=== PATIENT | female | born 1940 | race Caucasian/White ===

== ENCOUNTER 2017-01-30 12:45 | Emergency (ER) | payer MEDICARE ==
[~2017-01-30 12:45] MED LIST: ADULT LOW DOSE81 MG PO; CARVEDILOL6.25 MG PO; CHRONULAC20 GM/30 M PO; ENTRESTO PO; ISOSORBIDE MONO60 MG PO; LASIX20 MG PO; LEVOTHYROXINE25 MCG PO; NITROSTAT0.4 MG SL; PROTONIX40 MG PO; XARELTO20 MG PO
[2017-05-11] MEDS ORDERED: TRAMADOL HCL50 MG PO (16:31)
[2017-05-11] MEDS ORDERED: LASIX40 MG PO (16:31)
[2017-05-11] MEDS ORDERED: ISOSORBIDE MONO60 MG PO (16:32)
[2017-05-15] MEDS ORDERED: ALPRAZOLAM0.5 MG PO (10:22)
[2017-05-15] MEDS ORDERED: LOW DOSE ASPIRI81 MG PO (10:23)
[2017-05-15] MEDS ORDERED: TOPROL XL25 MG PO (10:24)
[2017-05-15] MEDS ORDERED: BRILINTA 90 MG90 MG PO (10:25)
[2017-05-15] MEDS ORDERED: TYLENOL 325MG325 MG PO (10:31)
[2017-06-05] MEDS ORDERED: ENTRESTO PO (21:33)
[2017-06-12] MEDS ORDERED: ALDACTONE25 MG PO (16:09)
[2017-06-12] MEDS ORDERED: FERROUS SULFAT325 M2 PO (16:11)
[2017-06-12] MEDS ORDERED: LEVOTHYROXINE50 MCG PO (16:12)
[2017-06-12] MEDS ORDERED: IMDUR ER TAB 6060 MG PO (16:13)
[2017-07-03] MEDS ORDERED: NEURONTIN 100100 MG PO (03:02)
== END 2017-01-30 15:41 | disposition home or self-care (01) ==
LOC: ER1 12:45
DX: I50.9 Heart failure, unspecified (principal); Z91.14 Patient's other noncompliance with medication regimen
CPT/HCPCS: 99283

== ENCOUNTER 2017-02-01 22:05 | Inpatient (IN) | payer MEDICARE ==
[~2017-02-01] VITALS: Ht 157.5 cm; Wt 79.9 kg
[2017-02-02 01:38] LABS: HEMOGLOBIN 10.9 gm/dl (12.3-15.3); RED BLOOD COUNT 4.26 M/UL (4.00-5.10); WHITE BLOOD COUNT 6.7 K/UL (4.5-11.0)
[2017-02-03 04:19] LABS: HEMOGLOBIN 10.6 gm/dl (12.3-15.3); RED BLOOD COUNT 4.02 M/UL (4.00-5.10); WHITE BLOOD COUNT 6.5 K/UL (4.5-11.0)
[2017-02-04 05:33] LABS: HEMOGLOBIN 10.3 gm/dl (12.3-15.3); RED BLOOD COUNT 4.05 M/UL (4.00-5.10); WHITE BLOOD COUNT 7.4 K/UL (4.5-11.0)
[2017-02-06 04:16] LABS: HEMOGLOBIN 10.6 gm/dl (12.3-15.3); RED BLOOD COUNT 4.12 M/UL (4.00-5.10); WHITE BLOOD COUNT 7.4 K/UL (4.5-11.0)
[2017-02-06] MEDS ORDERED: PEPCID20 MG PO (11:14)
[2017-02-06] MEDS ORDERED: FERROUS SULFAT325 MG PO (11:15)
[2017-02-06] MEDS ORDERED: THERAGRAN M TAB1 EA PO (11:21)
[2017-05-11] MEDS ORDERED: LASIX40 MG PO (16:31)
[2017-05-11] MEDS ORDERED: TRAMADOL HCL50 MG PO (16:31)
[2017-05-11] MEDS ORDERED: ISOSORBIDE MONO60 MG PO (16:32)
[2017-05-15] MEDS ORDERED: ALPRAZOLAM0.5 MG PO (10:22)
[2017-05-15] MEDS ORDERED: LOW DOSE ASPIRI81 MG PO (10:23)
[2017-05-15] MEDS ORDERED: TOPROL XL25 MG PO (10:24)
[2017-05-15] MEDS ORDERED: BRILINTA 90 MG90 MG PO (10:25)
[2017-05-15] MEDS ORDERED: TYLENOL 325MG325 MG PO (10:31)
[2017-06-05] MEDS ORDERED: ENTRESTO PO (21:33)
[2017-06-12] MEDS ORDERED: ALDACTONE25 MG PO (16:09)
[2017-06-12] MEDS ORDERED: FERROUS SULFAT325 M2 PO (16:11)
[2017-06-12] MEDS ORDERED: LEVOTHYROXINE50 MCG PO (16:12)
[2017-06-12] MEDS ORDERED: IMDUR ER TAB 6060 MG PO (16:13)
[2017-07-03] MEDS ORDERED: NEURONTIN 100100 MG PO (03:02)
== END 2017-02-06 13:09 | disposition home or self-care (01) | DRG 291 ==
LOC: ER1 22:05 → ZEROF 02-02 11:27 → M/S 02-02 11:27
PROVIDERS: Family Medicine; Internal Medicine Infectious Disease; Physician Assistant; ADMIT Family Medicine
DX: I13.0 Hypertensive heart and chronic kidney disease with heart failure and stage 1 through stage 4 chronic kidney disease, or unspecified chronic kidney disease (principal); I50.23 Acute on chronic systolic (congestive) heart failure; R18.8 Other ascites; E87.2 Acidosis; N17.9 Acute kidney failure, unspecified; K74.69 Other cirrhosis of liver; R73.03 Prediabetes; N18.3 Chronic kidney disease, stage 3 (moderate); R11.2 Nausea with vomiting, unspecified; I08.1 Rheumatic disorders of both mitral and tricuspid valves; R09.02 Hypoxemia; D64.9 Anemia, unspecified; I49.5 Sick sinus syndrome; I48.2 Chronic atrial fibrillation; I25.10 Atherosclerotic heart disease of native coronary artery without angina pectoris; I27.2 Other secondary pulmonary hypertension; E78.5 Hyperlipidemia, unspecified; E03.9 Hypothyroidism, unspecified; K42.9 Umbilical hernia without obstruction or gangrene; Z79.01 Long term (current) use of anticoagulants; Z95.810 Presence of automatic (implantable) cardiac defibrillator; Z95.1 Presence of aortocoronary bypass graft; Z95.5 Presence of coronary angioplasty implant and graft; Z79.82 Long term (current) use of aspirin; Z79.899 Other long term (current) drug therapy; Z87.891 Personal history of nicotine dependence
CPT/HCPCS: ECHO; 36415; 71010; 71020; 80048; 80053; 82550; 82553; 82607; 82728; 82803; 83540; 83550; 83605; 83874; 83880; 84439; 84443; 84484; 85025; 85027; 85379; 85610; 93005; 93306; 93970; 94640; 94664; 96374; 99283; 99285; J1756; J1940; J3420; J7050

== ENCOUNTER 2017-02-15 14:45 | Inpatient (IN) | payer MEDICARE, SELFPAY ==
[~2017-02-15] VITALS: Ht 167.6 cm; Wt 71.4 kg
[~2017-02-15 14:45] MED LIST changes: +FERROUS SULFAT325 MG PO; +PEPCID20 MG PO; +THERAGRAN M TAB1 EA PO
[2017-02-15 18:09] LABS: HEMOGLOBIN 11.3 gm/dl (12.3-15.3); RED BLOOD COUNT 4.25 M/UL (4.00-5.10); WHITE BLOOD COUNT 7.2 K/UL (4.5-11.0)
[2017-02-16 06:26] LABS: RED BLOOD COUNT 4.17 M/UL (4.00-5.10); WHITE BLOOD COUNT 7.3 K/UL (4.5-11.0)
[2017-02-17 04:17] LABS: HEMOGLOBIN 10.8 gm/dl (12.3-15.3); RED BLOOD COUNT 4.1 M/UL (4.00-5.10); WHITE BLOOD COUNT 7.6 K/UL (4.5-11.0)
[2017-02-17 10:48] LABS: BODY FLUID SOURCE PERITONEAL
[2017-02-19 03:26] LABS: RED BLOOD COUNT 4.06 M/UL (4.00-5.10); WHITE BLOOD COUNT 6.8 K/UL (4.5-11.0)
[2017-05-11] MEDS ORDERED: TRAMADOL HCL50 MG PO (16:31)
[2017-05-11] MEDS ORDERED: LASIX40 MG PO (16:31)
[2017-05-11] MEDS ORDERED: ISOSORBIDE MONO60 MG PO (16:32)
[2017-05-15] MEDS ORDERED: ALPRAZOLAM0.5 MG PO (10:22)
[2017-05-15] MEDS ORDERED: LOW DOSE ASPIRI81 MG PO (10:23)
[2017-05-15] MEDS ORDERED: TOPROL XL25 MG PO (10:24)
[2017-05-15] MEDS ORDERED: BRILINTA 90 MG90 MG PO (10:25)
[2017-05-15] MEDS ORDERED: TYLENOL 325MG325 MG PO (10:31)
[2017-06-05] MEDS ORDERED: ENTRESTO PO (21:33)
[2017-06-12] MEDS ORDERED: ALDACTONE25 MG PO (16:09)
[2017-06-12] MEDS ORDERED: FERROUS SULFAT325 M2 PO (16:11)
[2017-06-12] MEDS ORDERED: LEVOTHYROXINE50 MCG PO (16:12)
[2017-06-12] MEDS ORDERED: IMDUR ER TAB 6060 MG PO (16:13)
[2017-07-03] MEDS ORDERED: NEURONTIN 100100 MG PO (03:02)
== END 2017-02-20 15:07 | disposition home or self-care (01) | DRG 441 ==
LOC: ER1 14:45 → ZEROF 22:00 → MED SURG 4 22:00
PROVIDERS: Emergency Medicine; Family Medicine; ADMIT Internal Medicine
PROC: 0W9G3ZZ Drainage of Peritoneal Cavity, Percutaneous Approach (ICD-10-PCS; principal; 2017-02-17)
DX: K75.81 Nonalcoholic steatohepatitis (NASH) (principal); I50.23 Acute on chronic systolic (congestive) heart failure; I13.0 Hypertensive heart and chronic kidney disease with heart failure and stage 1 through stage 4 chronic kidney disease, or unspecified chronic kidney disease; R18.8 Other ascites; L03.311 Cellulitis of abdominal wall; K76.6 Portal hypertension; D68.9 Coagulation defect, unspecified; N18.3 Chronic kidney disease, stage 3 (moderate); K42.9 Umbilical hernia without obstruction or gangrene; K74.60 Unspecified cirrhosis of liver; Z82.49 Family history of ischemic heart disease and other diseases of the circulatory system; I25.5 Ischemic cardiomyopathy; Z95.810 Presence of automatic (implantable) cardiac defibrillator; E78.5 Hyperlipidemia, unspecified; I48.2 Chronic atrial fibrillation; E11.22 Type 2 diabetes mellitus with diabetic chronic kidney disease; K21.9 Gastro-esophageal reflux disease without esophagitis; Z98.890 Other specified postprocedural states; I34.0 Nonrheumatic mitral (valve) insufficiency; I36.1 Nonrheumatic tricuspid (valve) insufficiency; E03.9 Hypothyroidism, unspecified; I27.2 Other secondary pulmonary hypertension; K80.20 Calculus of gallbladder without cholecystitis without obstruction; Z88.8 Allergy status to other drugs, medicaments and biological substances; Z79.899 Other long term (current) drug therapy; Z79.82 Long term (current) use of aspirin; Z79.01 Long term (current) use of anticoagulants; Z87.891 Personal history of nicotine dependence; R60.1 Generalized edema; I25.10 Atherosclerotic heart disease of native coronary artery without angina pectoris; Z95.5 Presence of coronary angioplasty implant and graft
CPT/HCPCS: 36415; 71020; 80048; 80053; 80202; 81001; 82140; 83690; 83880; 85025; 85027; 85610; 85730; 87070; 87086; 87205; 89051; 93005; 96374; 96375; 99285; J0696; J1940; J2270; J2405; J3370; J7050; J7070; P9047

== ENCOUNTER 2017-02-25 17:01 | Emergency (ER) | payer OTHER, MEDICARE ==
[2017-05-11] MEDS ORDERED: LASIX40 MG PO (16:31)
[2017-05-11] MEDS ORDERED: TRAMADOL HCL50 MG PO (16:31)
[2017-05-11] MEDS ORDERED: ISOSORBIDE MONO60 MG PO (16:32)
[2017-05-15] MEDS ORDERED: ALPRAZOLAM0.5 MG PO (10:22)
[2017-05-15] MEDS ORDERED: LOW DOSE ASPIRI81 MG PO (10:23)
[2017-05-15] MEDS ORDERED: TOPROL XL25 MG PO (10:24)
[2017-05-15] MEDS ORDERED: BRILINTA 90 MG90 MG PO (10:25)
[2017-05-15] MEDS ORDERED: TYLENOL 325MG325 MG PO (10:31)
[2017-06-05] MEDS ORDERED: ENTRESTO PO (21:33)
[2017-06-12] MEDS ORDERED: ALDACTONE25 MG PO (16:09)
[2017-06-12] MEDS ORDERED: FERROUS SULFAT325 M2 PO (16:11)
[2017-06-12] MEDS ORDERED: LEVOTHYROXINE50 MCG PO (16:12)
[2017-06-12] MEDS ORDERED: IMDUR ER TAB 6060 MG PO (16:13)
[2017-07-03] MEDS ORDERED: NEURONTIN 100100 MG PO (03:02)
== END 2017-02-25 22:04 | disposition home or self-care (01) ==
LOC: ER1 17:01
DX: T14.8 Other injury of unspecified body region (principal); V89.2XXA Person injured in unspecified motor-vehicle accident, traffic, initial encounter; Y93.89 Activity, other specified; Y92.410 Unspecified street and highway as the place of occurrence of the external cause
CPT/HCPCS: 71010; 72072; 72100; 99284

== ENCOUNTER → 2017-03-07 | Outpatient (CLI) | payer MEDICARE, SELFPAY ==
[~2017-03-07] MED LIST changes: +ALDACTONE25 MG PO; +ALPRAZOLAM0.5 MG PO; +BRILINTA 90 MG90 MG PO; +BUMEX 1MG TABLET1 MG PO; +FERROUS SULFAT325 M2 PO; +IMDUR ER TAB 6060 MG PO; +LASIX40 MG PO; +LEVOTHYROXINE50 MCG PO; +LOW DOSE ASPIRI81 MG PO; +NEURONTIN 100100 MG PO; +NYSTATIN1 EAC1 TP; +TOPROL XL25 MG PO; +TRAMADOL HCL50 MG PO; +TYLENOL 325MG325 MG PO
== END ==
LOC: LAB 14:27
PROVIDERS: Internal Medicine Nephrology
DX: N18.9 Chronic kidney disease, unspecified (principal); E03.9 Hypothyroidism, unspecified; M25.569 Pain in unspecified knee
CPT/HCPCS: 36415; 73560; 80053; 84443

== ENCOUNTER 2017-03-28 20:09 | Emergency (ER) | payer MEDICARE, SELFPAY ==
[~2017-03-28 20:09] MED LIST changes: -ALDACTONE25 MG PO; -ALPRAZOLAM0.5 MG PO; -BRILINTA 90 MG90 MG PO; -BUMEX 1MG TABLET1 MG PO; -FERROUS SULFAT325 M2 PO; -IMDUR ER TAB 6060 MG PO; -LASIX40 MG PO; -LEVOTHYROXINE50 MCG PO; -LOW DOSE ASPIRI81 MG PO; -NEURONTIN 100100 MG PO; -NYSTATIN1 EAC1 TP; -TOPROL XL25 MG PO; -TRAMADOL HCL50 MG PO; -TYLENOL 325MG325 MG PO
[2017-03-28 21:08] LABS: HEMOGLOBIN 11.5 gm/dl (12.3-15.3); RED BLOOD COUNT 4.14 M/UL (4.00-5.10); WHITE BLOOD COUNT 6.3 K/UL (4.5-11.0)
[2017-05-11] MEDS ORDERED: LASIX40 MG PO (16:31)
[2017-05-11] MEDS ORDERED: TRAMADOL HCL50 MG PO (16:31)
[2017-05-11] MEDS ORDERED: ISOSORBIDE MONO60 MG PO (16:32)
[2017-05-15] MEDS ORDERED: ALPRAZOLAM0.5 MG PO (10:22)
[2017-05-15] MEDS ORDERED: LOW DOSE ASPIRI81 MG PO (10:23)
[2017-05-15] MEDS ORDERED: TOPROL XL25 MG PO (10:24)
[2017-05-15] MEDS ORDERED: BRILINTA 90 MG90 MG PO (10:25)
[2017-05-15] MEDS ORDERED: TYLENOL 325MG325 MG PO (10:31)
[2017-06-05] MEDS ORDERED: ENTRESTO PO (21:33)
[2017-06-12] MEDS ORDERED: ALDACTONE25 MG PO (16:09)
[2017-06-12] MEDS ORDERED: FERROUS SULFAT325 M2 PO (16:11)
[2017-06-12] MEDS ORDERED: LEVOTHYROXINE50 MCG PO (16:12)
[2017-06-12] MEDS ORDERED: IMDUR ER TAB 6060 MG PO (16:13)
[2017-07-03] MEDS ORDERED: NEURONTIN 100100 MG PO (03:02)
== END 2017-03-28 23:20 | disposition home or self-care (01) ==
LOC: ER1 20:09
PROVIDERS: Emergency Medicine
DX: K85.90 Acute pancreatitis without necrosis or infection, unspecified (principal); R18.8 Other ascites; M25.562 Pain in left knee
CPT/HCPCS: 36415; 80053; 82550; 82553; 83605; 83690; 83874; 84484; 85025; 85610; 85730; 93005; 99284

== ENCOUNTER 2017-04-16 16:25 | Inpatient (IN) | payer MEDICARE ==
[~2017-04-16] VITALS: Ht 165.1 cm; Wt 69.6 kg
[2017-04-16 22:37] LABS: RED BLOOD COUNT 4.34 M/UL (4.00-5.10); WHITE BLOOD COUNT 6.7 K/UL (4.5-11.0)
[2017-04-19 07:07] LABS: HEMOGLOBIN 11.9 gm/dl (12.3-15.3); RED BLOOD COUNT 4.35 M/UL (4.00-5.10); WHITE BLOOD COUNT 6.6 K/UL (4.5-11.0)
[2017-04-20 05:22] LABS: HEMOGLOBIN 11.7 gm/dl (12.3-15.3); RED BLOOD COUNT 4.24 M/UL (4.00-5.10); WHITE BLOOD COUNT 5.9 K/UL (4.5-11.0)
[2017-04-21 06:25] LABS: RED BLOOD COUNT 4.46 M/UL (4.00-5.10); WHITE BLOOD COUNT 6.3 K/UL (4.5-11.0)
[2017-04-21 13:28] LABS: BODY FLUID SOURCE PERITONEAL
[2017-04-22 04:09] LABS: HEMOGLOBIN 11.6 gm/dl (12.3-15.3); RED BLOOD COUNT 4.28 M/UL (4.00-5.10); WHITE BLOOD COUNT 6.1 K/UL (4.5-11.0)
[2017-04-22] MEDS ORDERED: NYSTATIN1 EAC1 TP (16:06)
[2017-04-22] MEDS ORDERED: BUMEX 1MG TABLET1 MG PO (16:07)
[2017-05-11] MEDS ORDERED: LASIX40 MG PO (16:31)
[2017-05-11] MEDS ORDERED: TRAMADOL HCL50 MG PO (16:31)
[2017-05-11] MEDS ORDERED: ISOSORBIDE MONO60 MG PO (16:32)
[2017-05-15] MEDS ORDERED: ALPRAZOLAM0.5 MG PO (10:22)
[2017-05-15] MEDS ORDERED: LOW DOSE ASPIRI81 MG PO (10:23)
[2017-05-15] MEDS ORDERED: TOPROL XL25 MG PO (10:24)
[2017-05-15] MEDS ORDERED: BRILINTA 90 MG90 MG PO (10:25)
[2017-05-15] MEDS ORDERED: TYLENOL 325MG325 MG PO (10:31)
[2017-06-05] MEDS ORDERED: ENTRESTO PO (21:33)
[2017-06-12] MEDS ORDERED: ALDACTONE25 MG PO (16:09)
[2017-06-12] MEDS ORDERED: FERROUS SULFAT325 M2 PO (16:11)
[2017-06-12] MEDS ORDERED: LEVOTHYROXINE50 MCG PO (16:12)
[2017-06-12] MEDS ORDERED: IMDUR ER TAB 6060 MG PO (16:13)
[2017-07-03] MEDS ORDERED: NEURONTIN 100100 MG PO (03:02)
== END 2017-04-22 17:19 | disposition home or self-care (01) | DRG 291 ==
LOC: ER1 16:25 → ZEROF 04-17 02:10 → MED SURG 4 04-17 02:10
PROVIDERS: Emergency Medicine; Hospitalist; Physician Assistant; Physician Assistant Medical; ADMIT Internal Medicine
PROC: 0W9G3ZZ Drainage of Peritoneal Cavity, Percutaneous Approach (ICD-10-PCS; principal; 2017-04-21)
DX: I13.0 Hypertensive heart and chronic kidney disease with heart failure and stage 1 through stage 4 chronic kidney disease, or unspecified chronic kidney disease (principal); I50.23 Acute on chronic systolic (congestive) heart failure; R18.8 Other ascites; K76.6 Portal hypertension; N18.4 Chronic kidney disease, stage 4 (severe); K74.60 Unspecified cirrhosis of liver; I25.10 Atherosclerotic heart disease of native coronary artery without angina pectoris; Z95.1 Presence of aortocoronary bypass graft; I48.0 Paroxysmal atrial fibrillation; Z79.01 Long term (current) use of anticoagulants; E03.9 Hypothyroidism, unspecified; I49.5 Sick sinus syndrome; Z95.810 Presence of automatic (implantable) cardiac defibrillator; Z82.49 Family history of ischemic heart disease and other diseases of the circulatory system; Z87.891 Personal history of nicotine dependence; E78.5 Hyperlipidemia, unspecified
CPT/HCPCS: 36415; 71010; 76700; 80048; 80053; 81001; 82140; 83690; 83735; 83880; 84439; 84443; 84484; 85025; 85027; 85610; 85730; 87070; 87086; 89051; 93005; 96374; 96375; 96376; 99285; G0378; J1940; J2270; J2405; P9047